=== PATIENT | female | born 2000 | race Asian ===

== ENCOUNTER 2023-08-26 08:03 | Emergency (ER) | payer BC, MEDICAID, OTHER ==
[~2023-08-26] VITALS: Ht 157.5 cm; Wt 56.7 kg
[2023-08-26] MEDS ORDERED: ACETAMINOPHEN ES 500 MG TABLET PO ONE (09:00)
[2023-08-26] MEDS ORDERED: IBUPROFEN 600 MG TABLET PO ONE (09:00)
[2023-08-26] MEDS ORDERED: IBUPROFEN 600 MG TABLET ONE (09:16)
[2023-08-26] MEDS ORDERED: ACETAMINOPHEN ES 500 MG TABLET ONE (09:16)
[2023-08-26 10:46] VITALS: BP 122/76; TEMP 98.4; O2SAT 100
== END 2023-08-26 10:47 | disposition home or self-care (01) ==
LOC: ER 08:03
DX: B34.9 Viral infection, unspecified (principal); Z20.822 Contact with and (suspected) exposure to COVID-19
CPT/HCPCS: 99283; 87426; 87804 ×2; C9803